=== PATIENT | female | born 1980 | race Caucasian/White ===

== ENCOUNTER 2018-05-01 22:05 | Inpatient (IN) | payer OTHER ==
[~2018-05-01] VITALS: Ht 154.9 cm; Wt 94.0 kg
[~2018-05-01 22:05] MED LIST: HYDROCODON-ACE1 EAC7 PO; NAPROXEN500 MG PO; PREDNISONE20 MG PO
[2018-05-01 22:33] LABS: HEMATOCRIT 42.5 % (36.0-46.0); HEMOGLOBIN 14.9 G/DL (11.9-15.5); MCH 30.9 PG (29.0-34.0); MCHC 35.1 G/DL (30.0-36.0); MCV 88.2 FL (83-99); PLATELET COUNT 173 K/uL (156-360); RBC DIS.WIDTH-SD 42.2 % (39-53); RED BLOOD COUNT 4.82 M/uL (3.80-5.20); WHITE BLOOD COUNT 8.3 K/uL (4.1-10.2)
[2018-05-01 22:44] LABS: CHLORIDE 104 mEq/L (99-109)
[2018-05-01 22:45] LABS: POTASSIUM 3.7 mEq/L (3.7-5.4); SODIUM 140 mEq/L (136-147)
[2018-05-01 22:46] LABS: GLUCOSE 99 mg/dL (70-99)
[2018-05-01 22:49] LABS: SERUM ETHYL ALCOHOL < 10 mg/dL
[2018-05-01 22:50] LABS: CREATININE 0.9 mg/dL (0.6-1.3); GFR ESTIMATE (CALCULATED) > 59 mL/min/
[2018-05-01 22:51] LABS: UREA NITROGEN (BUN) 14 mg/dL (9-23)
[2018-05-01 22:51] LABS: AMPHETAMINE NEGATIVE (500 ng/mL); BARBITURATES NEGATIVE (200 ng/mL); BENZODIAZEPINES PRESUMPTIVE POSITIVE (150 ng/mL); BUPRENORPHINE NEGATIVE (10 ng/mL); COCAINE NEGATIVE (150 ng/mL); METHADONE PRESUMPTIVE POSITIVE (200 ng/mL); METHAMPHETAMINE NEGATIVE (500 ng/mL); OPIATES (MORPHINE) NEGATIVE (100 ng/mL); OXYCODONE NEGATIVE (100 ng/mL); PHENCYCLIDINE NEGATIVE (25 ng/mL); PROPOXYPHENE NEGATIVE (300 ng/mL); THC CANNABINOIDS PRESUMPTIVE POSITIVE (50 ng/mL); TRICYCLIC ANTIDEPRESSANTS NEGATIVE (300 ng/mL)
[2018-05-01 22:59] LABS: QUANTITATIVE HCG < 4.0 MIU/ML
[2018-05-02 01:02] LABS: BENZODIAZEPINES, URINE SCREEN POSITIVE (200 ng/mL)
[2018-05-02] MEDS ORDERED: FLUOXETINE HCL20 MG PO (02:03)
[2018-05-02] MEDS ORDERED: ATARAX,VISTARIL25 MG PO (02:04)
[2018-05-02] MEDS ORDERED: PANTOPRAZOLE SO40 MG PO (02:05)
[2018-05-02] MEDS ORDERED: DESYREL100 MG PO (02:05)
[2018-05-02] MEDS ORDERED: EXCEDRIN EXTRA1 EACH PO (02:06)
[2018-05-02] MEDS ORDERED: METHOCARBAMOL500 MG PO (02:06)
[2018-05-02 02:48] VITALS: BP 131/72
[2018-05-02 09:35] VITALS: BP 168/77
[2018-05-02 16:42] VITALS: BP 143/93
[2018-05-03 08:14] VITALS: BP 157/81
[2018-05-03 16:22] VITALS: BP 131/70
[2018-05-04 07:54] VITALS: BP 140/68
[2018-05-04 16:19] VITALS: BP 137/80
[2018-05-05 07:58] VITALS: BP 120/64
[2018-05-05] MEDS ORDERED: ARIPIPRAZOLE10 MG PO (10:53)
[2018-05-05] MEDS ORDERED: PRAZOSIN HCL1 MG PO (10:53)
[2018-05-05] MEDS ORDERED: DESYREL100 MG PO (10:53)
[2018-05-05] MEDS ORDERED: FLUOXETINE HCL20 MG PO (10:53)
== END 2018-05-05 12:45 | disposition home or self-care (01) | DRG 882 ==
LOC: EME 22:05 → EDOF 05-02 00:38 → 1WEST 05-02 00:38 → ENRESERV 05-02 01:29 → 1WEST 05-02 02:39
DX: F43.10 Post-traumatic stress disorder, unspecified (principal); Z59.0 Homelessness; F41.1 Generalized anxiety disorder; G47.00 Insomnia, unspecified; Z91.5 Personal history of self-harm; F17.200 Nicotine dependence, unspecified, uncomplicated; F10.20 Alcohol dependence, uncomplicated; F33.2 Major depressive disorder, recurrent severe without psychotic features; F11.10 Opioid abuse, uncomplicated
CPT/HCPCS: 80048; 84702; 84999; 85027; 90839; 97150 GO; 97166 GO; 99281; 99285; G0480; J0572; J0574; Q0177

== ENCOUNTER 2018-05-17 19:45 | Emergency (ER) | payer OTHER ==
[~2018-05-17] VITALS: Ht 154.9 cm; Wt 93.1 kg
[~2018-05-17 19:45] MED LIST changes: +ARIPIPRAZOLE10 MG PO; +ATARAX,VISTARIL25 MG PO; +DESYREL100 MG PO; +EXCEDRIN EXTRA1 EACH PO; +FLUOXETINE HCL20 MG PO; +METHOCARBAMOL500 MG PO; +PANTOPRAZOLE SO40 MG PO; +PRAZOSIN HCL1 MG PO
[2018-05-17 21:18] LABS: HEMATOCRIT 38.2 % (36.0-46.0); HEMOGLOBIN 13.3 G/DL (11.9-15.5); MCH 30.7 PG (29.0-34.0); MCHC 34.8 G/DL (30.0-36.0); MCV 88.2 FL (83-99); PLATELET COUNT 181 K/uL (156-360); RBC DIS.WIDTH-CV 13.9 % (11.8-14.6); RBC DIS.WIDTH-SD 44.8 % (39-53); RED BLOOD COUNT 4.33 M/uL (3.80-5.20); WHITE BLOOD COUNT 6.6 K/uL (4.1-10.2)
[2018-05-17 21:40] LABS: ALBUMIN 4.2 g/dL (3.2-4.8)
[2018-05-17 21:41] LABS: CHLORIDE 106 mEq/L (99-109); POTASSIUM 3.5 mEq/L (3.7-5.4); SODIUM 141 mEq/L (136-147)
[2018-05-17 21:43] LABS: GLUCOSE 120 mg/dL (70-99); TOTAL PROTEIN 6.8 g/dL (6.4-8.3)
[2018-05-17 21:45] LABS: TOTAL BILIRUBIN 0.4 mg/dL (0.0-1.0)
[2018-05-17 21:46] LABS: ALKALINE PHOSPHATASE 61 IU/L (3-129)
[2018-05-17 21:47] LABS: CREATININE 0.7 mg/dL (0.6-1.3); GFR ESTIMATE (CALCULATED) > 59 mL/min/
[2018-05-17 21:48] LABS: AST (GOT) 21 IU/L (2-34); UREA NITROGEN (BUN) 20 mg/dL (9-23)
[2018-05-17 21:50] LABS: ALT (GPT) 19 IU/L (3-49)
[2018-05-17 22:01] LABS: QUANTITATIVE HCG < 4.0 MIU/ML
[2018-05-18 00:19] LABS: APPEARANCE SL.HAZY ((CLEAR)); BILIRUBIN NEGATIVE; BLOOD SMALL; COLOR YELLOW ((YELLOW)); GLUCOSE (STRIP) NEGATIVE; KETONES NEGATIVE; LEUKOCYTES LARGE; NITRITE NEGATIVE; PROTEIN (STRIP) NEGATIVE; SPECIFIC GRAVITY 1.014 (1.000-1.030); UROBILINOGEN 0.2 MG/DL (0.2-1.0)
[2018-05-18 00:23] LABS: BACTERIA NONE SEEN /HPF; EPITHELIAL CELLS 2+ /HPF; MUCUS TRACE /LPF; RED BLOOD CELLS 15-20 /HPF (0-5); UCUL ADDED? YES; WHITE BLOOD CELLS 20-30 /HPF (0-5)
[2018-05-18 01:12] LABS: AMPHETAMINE NEGATIVE (500 ng/mL); BARBITURATES NEGATIVE (200 ng/mL); BENZODIAZEPINES PRESUMPTIVE POSITIVE (150 ng/mL); BUPRENORPHINE NEGATIVE (10 ng/mL); COCAINE NEGATIVE (150 ng/mL); METHADONE NEGATIVE (200 ng/mL); METHAMPHETAMINE NEGATIVE (500 ng/mL); OPIATES (MORPHINE) NEGATIVE (100 ng/mL); OXYCODONE NEGATIVE (100 ng/mL); PHENCYCLIDINE NEGATIVE (25 ng/mL); PROPOXYPHENE NEGATIVE (300 ng/mL); THC CANNABINOIDS PRESUMPTIVE POSITIVE (50 ng/mL); TRICYCLIC ANTIDEPRESSANTS NEGATIVE (300 ng/mL)
[2018-05-18] MEDS ORDERED: KEPPRA500 MG PO (01:50)
[2018-05-18] MEDS ORDERED: MACROBID100 MG PO (01:50)
[2018-05-18 02:39] VITALS: BP 124/98
[2018-05-18 02:40] LABS: BENZODIAZEPINES, URINE SCREEN Negative (200 ng/mL)
== END 2018-05-18 02:41 | disposition home or self-care (01) ==
LOC: EME 19:45
PROVIDERS: Physician Assistant
DX: G40.909 Epilepsy, unspecified, not intractable, without status epilepticus (principal); T40.7X5A Adverse effect of cannabis (derivatives), initial encounter; N39.0 Urinary tract infection, site not specified; F32.9 Major depressive disorder, single episode, unspecified; F41.9 Anxiety disorder, unspecified; F43.10 Post-traumatic stress disorder, unspecified; F12.90 Cannabis use, unspecified, uncomplicated
CPT/HCPCS: 70450; 70486; 72125; 80053; 81003; 84702; 84999; 85027; 85610; 87086; 99281; 99285; J1200; J1953; J2060; J7030; J7050